=== PATIENT | male | born 1960 | race Caucasian/White ===

== ENCOUNTER → 2025-04-01 | Outpatient (CLI) | payer OTHER, SELFPAY ==
--- NOTE | 2025-04-01 07:45 | XR_ITS ---
Examination: Abdomen sonogram, complete Date and time of exam: April 01, 2025, 0721 hours INDICATIONS: Abdominal pain beginning 8 years ago. Technique: Multiple real-time grayscale transabdominal sonographic images of the abdomen have been obtained. Findings: Cholelithiasis, gallbladder wall 0.4 cm Common bile duct 0.4 cm Pancreatic head 2.9 cm Aorta not enlarged. Liver 16.4 cm fatty infiltration Normal hepatopetal portal venous flow Patent IVC Right kidney 11.6 cm renal cortex 1.3 cm Left kidney 10.7 cm renal cortex 1.2 cm Spleen 11.0 cm IMPRESSION: Cholelithiasis, thickening of the gallbladder wall, consider HIDA scan or MRCP follow-up to exclude cholecystitis
== END | disposition home or self-care (01) ==
LOC: CDIM 06:52
PROVIDERS: PCP Nurse Practitioner Family; Referring Provider Nurse Practitioner Family; Visit Provider Nurse Practitioner Family
DX: K80.20 Calculus of gallbladder without cholecystitis without obstruction (principal); K82.8 Other specified diseases of gallbladder
CPT/HCPCS: 76700

== ENCOUNTER 2025-04-23 07:14 | Observation (INO) | payer OTHER, SELFPAY ==
[2025-04-23] VITALS (17 sets, daily range): BP systolic 100–143; BP diastolic 64–96; PULSE 42–75; RESP 13–95; TEMP 36.1–37.1; O2SAT 94–98; BMI 31.4
--- NOTE | 2025-04-23 07:26 | EKG_ITS ---
[facility] Test Date: 2025-04-23 Pat Name: ZOË MADISON Department: Room: - Gender: Male Fund Accountant: : [id number] Requested By: ED Temporary Provider Order Number: [id number] Reading MD: ED Temporary Provider Measurements Intervals [place] Rate: 52 P: 66 ME: 174 QRS: -52 QRSD: 84 T: -15 QT: 370 QTc: 347 Interpretive Statements SINUS BRADYCARDIA PATTERN CONSISTENT WITH PULMONARY DISEASE LEFT ANTERIOR FASCICULAR BLOCK [QRS AXIS <= -45, QR IN I, RS IN II] SEPTAL MYOCARDIAL INFARCTION , PROBABLY OLD [40+ ms Q WAVE IN V1/V2] No previous ECG available for comparison /store/S0/[id number].pdf
--- NOTE | 2025-04-23 07:35 | XR_ITS ---
Examination: Abdomen sonogram, Limited Date and time of exam: April 23, 2025, 0745 hours INDICATIONS: Abdominal pain months, worse the last several weeks Technique: Real-time moralez scale transabdominal sonographic images of the upper abdomen obtained. Findings: Gallstones, gallbladder wall 0.2 cm Common bile duct 0.3 cm Pancreatic head 2.8 cm Liver 13.0 cm no liver lesions Normal hepatopetal portal venous flow Patent IVC IMPRESSION: Cholelithiasis, negative for cholecystitis
--- NOTE | 2025-04-23 07:35 | XR_ITS ---
Examination: CT abdomen and pelvis without contrast. Coronal 3-D reconstructions. Sagittal 2-D reconstructions. Date and time of exam: April 23, 2025, 0810 hours INDICATIONS: Generalized abdominal pain with nausea today CTDI: vol (mGy): 8.18 DLP: (mGycm): 505 Technique: Axial images of the abdomen have been obtained, 3 mm slice thickness Intravenous contrast material has not been administered. Low dose protocols were performed. One or more of the following dose reduction techniques were used; automated exposure control, adjustment of the mA and/or KV according to patient size, use of iterative reconstruction technique. Findings: No focal liver or splenic lesions Gallstones No pancreatic mass Fat-containing left adrenal nodule 24 mm Moderate renal scar formation, no hydronephrosis or ureteral calculi Aorta normal size No bowel obstruction Normal appendix No diverticulitis Normal seminal vesicles, no significant prostatomegaly Contracted urinary bladder IMPRESSION: Cholelithiasis, negative for cholecystitis 24 mm left adrenal adenoma Moderate renal scar formation Normal appendix No bowel obstruction or diverticulitis
[2025-04-23 08:24] LABS: Collection Type, Urine Clean Catch; Squamous Epithelial Cell,Urine 0 /hpf (0-5)
[2025-04-23 08:34] LABS: Basophils # (Auto) 0.0 Thou/mm3 (0.0-0.2); Basophils % (Auto) 1 % (0-2.5); Eosinophils # (Auto) 0.2 Thou/mm3 (0.0-0.5); Eosinophils % (Auto) 3 % (0-10); Hematocrit 46.9 % (41.0-53.0); Hemoglobin 15.2 g/dL (13.5-16.0); Immature Granulocytes Auto 0.03 Thou/mm3 (0.00-0.00); Lymphocytes # (Auto) 1.9 Thou/mm3 (1.0-4.8); Lymphocytes % (Auto) 29 % (10-50); Mean Corpuscular HGB Conc 32.4 g/dl (31.0-37.0); Mean Corpuscular Hemoglobin 28.4 pg (25.0-35.0); Mean Corpuscular Volume 88 fL (80-100); Monocytes # (Auto) 0.5 Thou/mm3 (0.0-0.8); Monocytes % (Auto) 8 % (0-12); Neutrophils # (Auto) 3.9 Thou/mm3 (1.8-7.7); Neutrophils % (Auto) 59 % (37-80); Nucleated Red Blood Cell # 0.00 Thou/mm3 (0.00-0.00); Nucleated Red Blood Cell % 0 /100 WBC (0); Platelet Count 268 Thou/mm3 (140-440); RDW Standard Deviation 43.1 fL (35.1-43.9); Red Blood Count 5.36 Miln/mm3 (4.50-5.90); White Blood Count 6.6 Thou/mm3 (3.8-10.6)
[2025-04-23 08:42] LABS: Bacteria,Urine Rare; Bilirubin,Urine Negative (Negative); Blood,Urine Negative (Negative); Clarity,Urine Clear (Clear/Hazy); Color,Urine Yellow (Lt Yel-Yel); Culture Indicated,Urine Not Indicated; Glucose, Urine Negative (Negative); Ketones,Urine 1+ (Negative); Leukocyte Esterase,Urine Negative (Negative); Nitrite,Urine Negative (Negative); PH,Urine 6.0 (5.0-7.0); Protein,Urine Negative (Neg - Trace); RBC,Urine 4 /hpf (0-3); Specific Gravity,Urine 1.018 (1.001-1.035); Urobilinogen,Urine Negative mg/dL (0.0-1.0); WBC,Urine 1 /hpf (0-5)
[2025-04-23 08:58] LABS: Alanine Aminotransferase 27 U/L (10-49); Albumin, Serum 4.5 gm/dL (3.4-4.8); Albumin/Globulin Ratio 1.4 (1.2-2.2); Alkaline Phosphatase 95 U/L (46-116); Anion Gap 9 (7-16); Aspartate Amino Transferase 23 U/L (0-34); BUN/Creatinine Ratio 9 Ratio (12-20); Bilirubin,Total 2.4 mg/dL (0.3-1.2); Blood Urea Nitrogen 9 mg/dL (9-23); Calcium 9.6 mg/dL (8.3-10.6); Calcium (Corrected) 9.6 mg/dL (8.5-10.1); Carbon Dioxide 26.9 mMol/L (20.0-31.0); Chloride 106 mMol/L (98-107); Creatinine (Component) 1.0 mg/dL (0.6-1.3); Estimated Creatinine Clearance 79.8 mL/min (>60); Globulin 3.2 gm/dL (2.3-3.5); Glucose 92 mg/dL (74-106); Lipase 38 U/L (12-53); Osmolality,Calculated 281 (275-295); Potassium 4.4 mMol/L (3.4-5.1); Sodium 142 mMol/L (136-145); Total Protein 7.7 gm/dL (5.7-8.2); eGFR > 60 See Note
[2025-04-23 09:21] LABS: Troponin I 0.082 ng/mL (0.0-0.045)
--- NOTE | 2025-04-23 09:43 | PD.EDABDPN ---
ED Abdominal Pain RME/HPI General Chief Complaint: Abdominal Pain Stated complaint: Abdominal pain Time seen by provider: 04/23/25 07:35 Arrival date/time: 04/23/25 07:14 64-year-old male presents to the Emergency Department for complaint of epigastric pain intermittently for the last month. Patient had an outpatient ultrasound which showed cholelithiasis patient was seen by Dr. Pearson and was referred to the ER for lab work and admission for cholecystectomy Related Data Allergies Allergy/AdvReac Type Severity Reaction Status Date / Time codeine Allergy Intermediate Vomiting Verified 04/23/25 07:18 Course Quality Measures none Orders Category Date Time Status COVID-19 Screening Questionnaire NOW Care 04/23/25 08:57 Active Decision to Admit X1 Care 04/23/25 08:57 Active EKG (ED ONLY) *Do not use* NOW Care 04/23/25 07:26 Completed Consult to Cardiology Stat Cons 04/23/25 09:50 Ordered Consult to General Surgery Stat Cons 04/23/25 08:[address] abdomen pelvis wo con Stat Exams 04/23/25 07:35 Completed EKG (ED Only) Stat Exams 04/23/25 07:26 Draft US gall bladder Stat Exams 04/23/25 07:35 Completed BNP [B-Type Natriuretic Peptide] Stat Lab 04/23/25 07:58 Completed CBC Stat Lab 04/23/25 07:58 Completed Comprehensive Metabolic Panel Stat Lab 04/23/25 07:58 Completed Lipase Stat Lab 04/23/25 07:58 Completed Mag [Magnesium] Stat Lab 04/23/25 07:58 Completed PT [Prothrombin Time with INR] Stat Lab 04/23/25 07:58 Completed PTT [Partial Thromboplastin Time] Stat Lab 04/23/25 07:58 Completed Troponin I Stat Lab 04/23/25 07:58 Completed UA, C/S IF [Urinalysis, C/S if Indicated] Stat Lab 04/23/25 07:44 Completed Vital Signs Vital signs: Vital Signs Temperature 98.1 F 04/23/25 07:30 Pulse Rate 55 L 04/23/25 07:30 Respiratory Rate 16 04/23/25 07:30 Blood Pressure 116/69 04/23/25 07:30 Pulse Oximetry (%) 95 04/23/25 07:30 Oxygen Delivery Method Room Air 04/23/25 07:30 O2 saturation 95% room air within normal limits PROCEDURES: EKG Interpretation #1: Date of EK04/23/25 Time of EK:56 Rate: 52 Interpretation: Interpreted by me EKG Impression: Normal sinus rhythm (Sinus bradycardia), No acute ST-T changes, No ectopy, No ischemic changes, Normal QRS and Normal axis Abdominal Pain MDM MDM Narrative MDM Narrative:: 64-year-old male presents to the Emergency Department for complaint of epigastric pain intermittently for the last month. Patient had an outpatient ultrasound which showed cholelithiasis patient was seen by Dr. Pearson and was referred to the ER for lab work and admission for cholecystectomy On exam patient does not appear ill or toxic no acute distress Lab work and imaging obtained as well as EKG Incidentally patient noted be bradycardic patient reports he is not on a beta-sole Patient takes lisinopril as well as cholesterol medication Patient troponin mildly elevated Consultation: I spoke with Dr. Pearson informed him of the results he requested cardiac clearance before surgery Patient to be admitted to hospitalist team. Consultation: Referral made to Dr. Bergeron cardiology At time of admission patient is in no distress Patient data External records reviewed:: [facility] previous records Clinical information provided by:: patient Social determinants that could affect healthcare access:: none Patient has the following chronic illnesses:: See history How is presenting disease/condition affected by chronic disease/condition?: caused by Evaluation data The following diagnostics were reviewed and interpreted by me:: lab results, radiology exam(s) and EKG tracing(s) Lab and/or radiology exams considered but not ordered:: Labs, radiology, EKG obtained Interpretation Summary: Reviewed by me Medications / Prescriptions Medications or Prescriptions considered but not ordered:: Given Medication administrations:: Given Consultations Consultation(s) initiated? (list below): Yes Consultation #1 (Physician, Specialty, Details): Dr Pearson Consultation #2 (Physician, Specialty, Details): Dr. Bergeron Diagnosis Differential diagnosis abdominal pain: abdominal pain, acute appendicitis, pancreatitis and other (Elevated troponin) Most likely diagnosis given after review of the tests above:: Gallstones, bradycardia, elevated troponin Admission Indicated Admission indicated?: not indicated Admission Request Was there a request for admission?: Yes Admission Attestation Admission request attestation: Discussed case with [] from Hospitalist service regarding admission. Discussed patients ED course, exam findings, labs, and radiology results. The Hospitalist [agrees,declines] to accept the patient for admission. Disposition Plan Disposition Plan: Admit Discharge Plan Plan Patient Disposition: Admit Acute Care w/in Hospital Discharge Disposition comment: Stable Prescriptions/Referrals Referrals: Woody([facility])Erika PA-C [Primary Care Provider] - In 1 week Problem List Clinical Impression: Biliary colic, Elevated troponin, Bradycardia Patient/Caregiver Discharge Instructions Education Materials: Preventing Surgical Site Infections Print Language: Lao Stand Alone Forms: Ariela Award Info., Patient Portal Info Letter PA/MANAGER [employer]IVERS[employer] Supervising Physician PA/MANAGER [employer]IVERSITY Supervising Physician: dr rosenthal
--- NOTE | 2025-04-23 09:46 | PC.SS ---
Patient Abram Green is a 64 Year old male admitted for Abdominal Pain. SS met with patient at bedside to discuss discharge plan and verify demographic information. Patient appeared to be alert to person place and situation. Patient reports he lives at home with his , William Green who he reports is his surrogate decision maker, [phone]. Patient does not utilize any source of DME to assist with ambulation. Patient is able to complete all ADL's independently. Choice of pharmacy is [facility] and PCP is Erika Mckay. At time of discharge patient will discharge back home. Patients will provide transportation. Discharge plan: Home Next of kin: , William Green PCP: Erika Mckay
[2025-04-23 10:13] LABS: Magnesium 2.0 mg/dL (1.6-2.6)
[2025-04-23 10:19] LABS: B-Type Natriuretic Peptide 41 pg/mL (0-100)
[2025-04-23 10:21] LABS: INR 1.0 (0.9-1.3); Partial Thromboplastin Time 29.4 Seconds (22.0-36.0); Prothrombin Time 10.9 Seconds (9.0-12.2)
--- NOTE | 2025-04-23 11:33 | ESCONSULT_ITS ---
<Statement entered by Antionette Bergeron MD - 04/28/25 12:48> I personally examined evaluated this patient who has GI symptoms and gallstones has mild bradycardia EKG unremarkable patient has no chest pain or shortness of breath evaluate patient with resident physician agree with treatment plan recommendation patient low cardiac risk for surgery proceed with surgery as scheduled for cholecystectomy HPI Data of Consult Consult date: 04/23/25 Requesting Physician: Jeri Mohamud DO Admitting Provider: Jeri Mohamud DO Attending Provider: Jeri Mohamud DO [facility] Consult Narrative Reason for consult: cardiac clearance History of present illness: Patient is 64 yr male with PMH of HTN and HLD presenting to ED due to worsening epigastric discomfort. Since past couple of years patient endorses burping with burning that worsens with coffee or soda. He has never taken OTC antacid medication but uses probiotics. Avoids eating spicy food and fast food. PCP is located [facility]. He was recently prescribed a course of azithromycin which temporarily relieved his symptoms. Patient has never undergone colonoscopy or EGD in the past. Discomfort is relieved with burping. Denies any diarrhea, chest pain, shortness of breath, no dizziness, no syncope, no LE swelling. Is typically active as his work involves lots of physical activity working in the [employer]. Does not smoke or drink etoh. Patient is aware of his bradycardia, says that this is baseline. CT A/P showed cholelithiasis, negative for cholecystitis, 24mm left adrenal adenoma. No diverticulitis. Cholelithiasis, negative for cholecystitis on Gallbladder u/s as well. EKG showed sinus bradycardia HR 52, QTc 347. CBC CMP largely unremarkable, Br elevated 2.4, LFTS wnl, Troponins 0.082. Cardiology consulted for clearance for cholecystectomy. cc:: cc: Jeri Mohamud DO Review of Systems Review of Systems Systems Reviewed: All systems reviewed, normal except as documented Exam Vital Signs Temp Pulse Resp BP Pulse Ox O2 Del Method 98.1 F 46 L 17 120/80 96 Room Air 04/23/25 07:30 04/23/25 09:15 04/23/25 09:15 04/23/25 09:15 04/23/25 09:15 04/23/25 09:15 Narrative Exam General: Alert and oriented x3. No acute distress, cooperative HEENT: NCAT, No JVD noted. Mucosa moist. Pupils are equal and reactive to light bilaterally Cardiovascular: Normal S1 and S2. Regular rate and rhythm. Respiratory: Lungs are clear to auscultation bilaterally. No wheezing or crackles heard. Abdomen: Soft, nontender, not distended, normal bowel sounds. Negative meyer sign. Skin: Warm to touch, dry, no rashes noted Musculoskeletal: No gross injuries. Able to move all 4 extremities. No pitting edema Neuro: Alert and oriented x3. No focal neuro deficits. Psych: Normal affect and mood Results Labs 04/23/25 07:58 04/23/25 07:58 Labs: Short CBC 04/23/25 Range/Units 07:58 WBC 6.6 (3.8-10.6) Thou/mm3 Hgb 15.2 (13.5-16.0) g/dL Hct 46.9 (41.0-53.0) % Plt Count 268 (140-440) Thou/mm3 BMP 04/23/25 07:58 Sodium 142 Potassium 4.4 Chloride 106 Carbon Dioxide 26.9 BUN 9 Creatinine 1.0 Glucose 92 Calcium 9.6 Cardiac Enzymes 04/23/25 Range/Units 07:58 Troponin I 0.082 H* (0.0-0.045) ng/mL Liver Function 04/23/25 Range/Units 07:58 Total Bilirubin 2.4 H (0.3-1.2) mg/dL AST 23 (0-34) U/L ALT 27 (10-49) U/L Alkaline Phosphatase 95 (46-116) U/L Albumin 4.5 (3.4-4.8) gm/dL Urine 04/23/25 Range/Units 07:44 Urine Color Yellow (Lt Yel-Yel) Urine Clarity Clear (Clear/Hazy) Urine pH 6.0 (5.0-7.0) Ur Specific [place] 1.018 (1.001-1.035) Urine Protein Negative (Neg - Trace) Urine Glucose (UA) Negative (Negative) Quality Measures Quality Measures none Medications Home Medications and Allergies Home Medications ?Medication ?Instructions ?Recorded ?Confirmed ?Type ezetimibe 10 mg tablet 10 mg PO DAILY 04/23/2509/12 History lisinopril 20 mg tablet 20 mg PO DAILY 04/23/2509/12 History Allergies Allergy/AdvReac Type Severity Reaction Status Date / Time codeine Allergy Intermediate Vomiting Verified 04/23/25 07:18 Visit Medications Discontinued Medications Pantoprazole Sodium (Pantoprazole Inj 40 Mg Vial) 40 mg IVP X1 ONE Stop: 04/23/25 11:28 Assessment & Plan Plan Patient is 64 yr male with PMH of HTN and HLD presenting to ED due to worsening epigastric discomfort. Since past couple of years patient endorses burping with burning that worsens with coffee or soda. Found to have gallstones on imaging. Cardiology consulted for clearance for cholecystectomy. #Elevated troponins #Asymptomatic Bradycardia EKG showed sinus bradycardia HR 52, QTc 347. Patient states that this is his baseline. He denies any SOB or dizziness. No chest pain. Trops minimally elevated at 0.082. Based on RCRI the patient scores 0. Indicating 0.5% risk of major cardiac event. Functional capacity estimated at >4 METs without symptoms. Patient is optimized from cardiac standpoint for procedure. No further testing is needed. -trend troponins -tele for HR monitoring -advise to discharge on pantoprazole 40 mg #Epigastric Pain #Biliary Colic #RUQ Pain #GERD #Cholelithiasis Primary care team to manage above conditions and ongoing care needs. The patient's management plan was discussed with my attending physician Dr. Bergeron. Purnima Ortiz, PGY-2
--- NOTE | 2025-04-23 13:29 | PC.NURSE ---
REPORT CALLED TO SHELLEY KHAN IN SURGERY. RN AWARE OF PATIENT'S HEART RATE BEING LOW IN 40S AND 50S AND ELEVATED TROPONIN LEVELS.
--- NOTE | 2025-04-23 13:55 | PD.SURCONS ---
HPI Consult details Consult date: 04/23/25 Reason for consultation narrative: Right upper quadrant abdominal pain with nausea History of present illness: 64-year-old male with history of hypertension and hypercholesterolemia presenting to the emergency department with abdominal pain. He has history of epigastric and right upper quadrant abdominal pain after eating. Over the past few days his pain has been getting progressively worse. He has epigastric and right upper quadrant abdominal pain rating to his chest and his back associated with nausea. Denies vomiting, fever, chills, jaundice or discoloration of urine or stool. CT scan and ultrasound revealed gallstones. Review of Systems Constitutional Constitutional: Denies chills and Denies fever(s) Cardiovascular Cardiovascular: Denies chest pain Respiratory Respiratory: Denies cough Gastrointestinal Gastrointestinal: Reports abdominal pain, Reports nausea and Denies vomiting Genitourinary Genitourinary: Denies difficulty urinating Musculoskeletal Musculoskeletal: Reports back pain Hematologic/Lymphatic Hematologic/Lymphatic: Denies easy bleeding and Denies easy bruising Past Medical History Surgical History OTHER SURGICAL HX: No surgeries in the past Social History SMOKING STATUS: Never smoker SUBSTANCE USE: does not use ALCOHOL: Current Meds Home Medications and Allergies Allergies Allergy/AdvReac Type Severity Reaction Status Date / Time codeine Allergy Intermediate Vomiting Verified 04/23/25 07:18 Exam Vital Signs Temp Pulse Resp BP Pulse Ox O2 Del Method 98.8 F 44 L 17 124/80 95 Room Air 04/23/25 12:35 04/23/25 12:35 04/23/25 12:35 04/23/25 12:35 04/23/25 12:35 04/23/25 12:35 Constitutional Constitutional: no acute distress Routine HEENT Exam Eye: Present PERRL (Anicteric sclera) Routine Abdominal Exam Comments: Abdomen is soft and nondistended. He has right upper quadrant tenderness to palpation with guarding, no rebound tenderness or peritonitis at this time Results Results: Laboratory Laboratory results: results reviewed Results: Imaging CT scan - abdomen: report reviewed and image reviewed CT scan - pelvis: report reviewed and image reviewed US - abdomen: report reviewed and image reviewed Assessment & Plan Additional Assessment Additional comments: Symptomatic cholelithiasis. Elevated troponins Plan Patient was evaluated by cardiology and cleared to proceed with cholecystectomy. Patient will be taken to the operating room for laparoscopic possible open cholecystectomy. Risks include but not limited to infection, bleeding, injury to bowel, liver, stomach, bile leak, retained stone, bile leak, abdominal sepsis and or abdominal abscess, need for further procedure and or operation discussed with the patient and his . Benefits alternatives explained to them, all their questions answered, they agreed and consented to proceed with the operation.
--- NOTE | 2025-04-23 14:38 | SUR.PHASEI ---
pt received from OR in recovery bay 5. pt obtunded, breathing unlabored on oxymask 6l, oral airway in place. v/s stabel. pt dressing to abd dermabond x4 cdi. report received from Dr. Rosas and Gayle ROSA.
--- NOTE | 2025-04-23 14:43 | ESHP_ITS ---
<Statement entered by Jose Alejandro Llamas MD - 04/23/25 18:19> Abram Green is a 64-year-old male with a past medical history of hypertension and hyperlipidemia who presents to the ED for abdominal pain. States that he had had significant abdominal pain that worsens with food and brought him to the ED. No associated nausea or vomiting, fever, chills, sweats but he does have some change in bowel habits including diarrhea and constipation. States that he has been having symptoms for the last few months but pain has been progressing and he was evaluated with outpatient imaging and noted to have gallstones. In the ED, vital signs were stable as he was afebrile and on room air and imaging showed cholelithiasis but no signs of cholecystitis on CT with a 24 mm left adrenal adenoma. Gallbladder ultrasound showed cholelithiasis and also negative for cholecystitis with normal CBD. EKG showed sinus bradycardia with a rate of 52 for which cardio was consulted and cleared patient for procedure. Patient underwent laparoscopic cholecystectomy without complications and will monitor overnight. He was started on clear liquid diet and will evaluate in the morning and follow-up on surgery recommendations. ----- Note reviewed and agree with care plan as documented. Please refer to the note below for further details. Plan discussed with attending physician Dr. Cade Llamas MD PGY-2 Internal Medicine Documentation for date of: 04/23/25 HPI History of Present Illness History of present illness: Mr. Abram Green is a 64M w/ a PMH of hyperlipidemia and hypertension here for RUQ and epigastric pain. He states that the pain has been a constant problem for the past 7 years, and has been progressively exacerbated by eating. What used to be intermittent pain with meals is now constant, irregardles of texture nor solid/liquid state. He rates the pain as 9/10 at peak, and 6/7 out of 10 at baseline, and describes it as sharp to RUQ/epigastric area without radiation. Denies fevers, chills, palpitations. Otherwise PMH and PSH is insignificant and noncontributory. Exam Vital Signs Temp Pulse Resp BP Pulse Ox O2 Del Method 98.8 F 44 L 17 124/80 95 Room Air 04/23/25 12:35 04/23/25 12:35 04/23/25 12:35 04/23/25 12:35 04/23/25 12:35 04/23/25 12:35 Narrative Exam General: alert and oriented to self/place/year, no acute distress, able to speak full sentences; GCS 15 AxOx4 HEENT: NC/AT, mucous membranes moist, bilateral sclera anicteric Cardiovascular: regular rate and rhythm, S1/S2 present, no murmurs appreciated Pulmonary: clear to auscultation bilaterally, no rales/rhonchi/wheezes Abdominal: soft, nontender, present bowel sounds; negative [place]'s sign, negative Rovsing's sign. Musculoskeletal: no peripheral edema Skin: Warm, well-perfused Constitutional Constitutional: no acute distress Results: Labs 04/23/25 07:58 04/23/25 07:58 Labs: Short CBC 04/23/25 Range/Units 07:58 WBC 6.6 (3.8-10.6) Thou/mm3 Hgb 15.2 (13.5-16.0) g/dL Hct 46.9 (41.0-53.0) % Plt Count 268 (140-440) Thou/mm3 BMP 04/23/25 07:58 Sodium 142 Potassium 4.4 Chloride 106 Carbon Dioxide 26.9 BUN 9 Creatinine 1.0 Glucose 92 Calcium 9.6 Cardiac Enzymes 04/23/25 Range/Units 07:58 Troponin I 0.082 H* (0.0-0.045) ng/mL Liver Function 04/23/25 Range/Units 07:58 Total Bilirubin 2.4 H (0.3-1.2) mg/dL AST 23 (0-34) U/L ALT 27 (10-49) U/L Alkaline Phosphatase 95 (46-116) U/L Albumin 4.5 (3.4-4.8) gm/dL Urine 04/23/25 Range/Units 07:44 Urine Color Yellow (Lt Yel-Yel) Urine Clarity Clear (Clear/Hazy) Urine pH 6.0 (5.0-7.0) Ur Specific [place] 1.018 (1.001-1.035) Urine Protein Negative (Neg - Trace) Urine Glucose (UA) Negative (Negative) Quality Measures Quality Measures none Medications Home Medications and Allergies Allergies Allergy/AdvReac Type Severity Reaction Status Date / Time codeine Allergy Intermediate Vomiting Verified 04/23/25 07:18 Visit Medications Fentanyl Citrate (Fentanyl Cit Inj 50 Mcg/Ml Amp 2ml) 25 mcg IVP Q5M PRN PRN Reason: PAIN SCALE 1-3 (mild Stop: 04/23/25 15:48 Hydromorphone HCl (Hydromorphone Inj 2 Mg/Ml Vial) 0.4 mg IVP Q5M PRN PRN Reason: PAIN SCALE 7-10 (Severe Stop: 04/23/25 15:49 Morphine Sulfate (Morphine Sulf Inj 4 Mg/Ml Vial) 3 mg IV Q5M PRN PRN Reason: PAIN SCALE 4-6 (Moderate Stop: 04/23/25 15:48 Discontinued Medications Ondansetron HCl (Ondansetron Inj 2 Mg/Ml Inj 2 Ml) 4 mg IVP X1 ONE Stop: 04/23/25 13:49 Pantoprazole Sodium (Pantoprazole Inj 40 Mg Vial) 40 mg IVP X1 ONE Stop: 04/23/25 11:28 Assessment & Plan Plan #Epigastric Pain #Biliary Colic #RUQ Pain #GERD #Cholelithiasis PMH of 7 year pain w/ meals; GERD vs Biliary Colic vs Cholecystitis No evidence of Cholecystitis on RUQ US: Cholelithiasis w/out evidence of cholecystic fat stranding/anterior wall thickening -S/p Cholecystitis w/ Dr. Peggy Pearson -Daily CMP BMP Mg Phos -Postoperative pain management multimodal with acetaminophen, norco and breakthrough morphine #Hyperbilirubinemia 04/23 TBili 2.4 AST ALT WNL S/p cholecystectomy w/ Dr. Peggy Pearson -Repeat Tbili 1205 AM #Asymptomatic Bradycardia #Elevated Troponins 04/23 0800 @ 0.082 EKG 04/23 = sinus bradycardia, QTC 347 R52 Cardiac clearance for surgery done by Dr. Bergeron -Telemetry monitoring -Follow up repeat troponin Hospital management: Disposition: postoperative evaluation, troponin check, Tbili check Fluids: NA, regular diet Diet: Regular diet as tolerated Lines: PIV DVT prophylaxis: Enoxaparin 40 CODE STATUS: full code/DNR Plan discussed with attending physician Dr. Jeri Armendariz MD, PGY1 Attending Provider Attestation/Addendum IJeri, DO, attest that I was physically present for the machado portions of the service and evaluated the patient with the resident and I reviewed and discussed the case with the resident and agree with the resident's findings and plans of care as documented above Patient is a 64 yo male with Pmhx of HTN with worsening epigastric pain since the summer who was seen by surgeon. Patient was found to be bradycardic and sent to ED. He was noted to have a detectable troponin of 0.082 and HR in the 40s. However, he denied any active chest pain or shortness of breath. Patient endorses postprandial pain and nausea, but no vomiting. He denies any fevers or chills. CT abd/pelvis was done in ED showing cholelithiasis, 24mm left adrenal adenoma, moderate renal scar formation, normal appendix. Gallbladder US is also positive for cholelithiasis. EKG shows evidence of sinus bradycardia, HR 52, no ST or T wave changes. Cardiology was consulted from ED for cardiac clearance for laprascopic cholecystectomy. Patient denies any personal history of cardiac disease. He states his mother has history of CAD with stent. 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 He denies any shortness of breath, lightheadedness or dyspnea on exertion. Will admit to telemetry to continue cardiac monitoring and for symptomatic cholelithiasis. Surgery consulted.
--- NOTE | 2025-04-23 15:55 | SUR.PHASEI ---
pt awake and alert, breathing unlabored on room air. v/s stable. pt dressing to abd dermabond x4 cdi. report called to Collette ROSA. pt will be transferred to room at this time.
[2025-04-23 17:23] LABS: Troponin I 0.073 ng/mL (0.0-0.045)
--- NOTE | 2025-04-23 18:40 | PC.NURSE ---
Pt having bigeminy. BP 118/70 pulse 51 resp-18 States that there is no chest pain, neck pain or arm pain. Just incisional discomfort. MD notified. States, watch for now.
[2025-04-24] VITALS: BP 96/57; PULSE 42; PULSE 43; RESP 17; TEMP 36.4; O2SAT 93
[2025-04-24 04:00] VITALS: BP 98/55; PULSE 44; PULSE 50; RESP 18; TEMP 36.2; O2SAT 98
[2025-04-24 05:48] LABS: Basophils # (Auto) 0.0 Thou/mm3 (0.0-0.2); Basophils % (Auto) 0 % (0-2.5); Eosinophils # (Auto) 0.0 Thou/mm3 (0.0-0.5); Eosinophils % (Auto) 0 % (0-10); Hematocrit 43.1 % (41.0-53.0); Hemoglobin 14.5 g/dL (13.5-16.0); Immature Granulocytes Auto 0.02 Thou/mm3 (0.00-0.00); Lymphocytes # (Auto) 1.4 Thou/mm3 (1.0-4.8); Lymphocytes % (Auto) 17 % (10-50); Mean Corpuscular HGB Conc 33.6 g/dl (31.0-37.0); Mean Corpuscular Hemoglobin 29.5 pg (25.0-35.0); Mean Corpuscular Volume 88 fL (80-100); Monocytes # (Auto) 0.4 Thou/mm3 (0.0-0.8); Monocytes % (Auto) 4 % (0-12); Neutrophils # (Auto) 6.3 Thou/mm3 (1.8-7.7); Neutrophils % (Auto) 78 % (37-80); Nucleated Red Blood Cell # 0.00 Thou/mm3 (0.00-0.00); Nucleated Red Blood Cell % 0 /100 WBC (0); Platelet Count 237 Thou/mm3 (140-440); RDW Standard Deviation 42.5 fL (35.1-43.9); Red Blood Count 4.91 Miln/mm3 (4.50-5.90); White Blood Count 8.1 Thou/mm3 (3.8-10.6)
[2025-04-24 05:50] VITALS: BMI 31.8
[2025-04-24 06:10] LABS: Alanine Aminotransferase 40 U/L (10-49); Albumin, Serum 4.3 gm/dL (3.4-4.8); Albumin/Globulin Ratio 1.4 (1.2-2.2); Alkaline Phosphatase 91 U/L (46-116); Anion Gap 12 (7-16); Aspartate Amino Transferase 44 U/L (0-34); BUN/Creatinine Ratio 12 Ratio (12-20); Bilirubin,Direct 0.9 mg/dL (0.0-0.3); Bilirubin,Total 2.5 mg/dL (0.3-1.2); Blood Urea Nitrogen 14 mg/dL (9-23); Calcium 9.4 mg/dL (8.3-10.6); Calcium (Corrected) 9.4 mg/dL (8.5-10.1); Carbon Dioxide 23.2 mMol/L (20.0-31.0); Chloride 104 mMol/L (98-107); Creatinine (Component) 1.2 mg/dL (0.6-1.3); Estimated Creatinine Clearance 66.9 mL/min (>60); Globulin 3.0 gm/dL (2.3-3.5); Glucose 114 mg/dL (74-106); Magnesium 2.1 mg/dL (1.6-2.6); Osmolality,Calculated 279 (275-295); Phosphorous 5.0 mg/dL (2.4-5.1); Potassium 4.5 mMol/L (3.4-5.1); Sodium 139 mMol/L (136-145); Total Protein 7.3 gm/dL (5.7-8.2); eGFR > 60 See Note
--- NOTE | 2025-04-24 07:15 | ESOP_ITS ---
Date of Procedure 04/23/25 Pre Op Diagnosis Symptomatic cholelithiasis Post Op Diagnosis Cholelithiasis with cholecystitis Procedure Laparoscopic cholecystectomy Findings Moderately distended gallbladder with multiple gallstones and chronic cholecystitis. Anterior surface of the liver was smooth without nodules or any lesions. Procedure Description Patient was brought into the operating room in supine position. After administration of general endotracheal anesthesia abdomen was prepped and draped in standard surgical manner. A Veress needle was inserted through the umbilicus and pneumoperitoneum was obtained up to 15 mmHg. The Veress needle was then removed, a 5 mm infraumbilical incision was made and the 5mm trocar was inserte d. Laparoscopic camera was placed. Under direct visualization a laparoscopic camera a 10 mm trocar was placed in subxiphoid and two 5 mm trocars placed in right upper quadrant. The anterior surface of the liver was smooth without nodules or any lesions. The gallbladder was identified and was noted to be moderately distended with a large gallstone and chronic cholecystitis. It was retracted cephalad and laterally. Dissection started near the infundibulum of gallbladder where cystic duct and gallbladder junction clearly identified. The cystic duct was circumferentially dissected off the peritoneum and surrounding inflammatory tissue. The critical view of safety was clearly demonstrated. Cystic duct was then divided between 2 endoclips proximally and one distally. The cystic artery was similarly dissected and divided. The gallbladder was then from the liver bed using electrocautery. The gallbladder was then placed inside an Endo Catch and removed from the abdomen utilizing subxiphoid trocar site. The area was copiously and thoroughly washed and irrigated, all the fluid was suctioned and the suction fluid returned clear. Hemostasis achieved using electrocautery. Endoclips noted be in place and intact without any bleeding or any leakage. Hemostasis was adequate and satisfactory. The subxiphoid trocar sites fascial defect was closed with 0 Vicryl using Endo C losure device. Instruments and trocars removed, pneumoperitoneum was evacuated and the incisions closed with 4-0 Monocryl in subcuticular fashion. Instrument needle and sponge counts were all reported to be correct X2. Patient tolerated the procedure well, was extubated, breathing spontaneously and without difficulty and was transferred to postanesthesia care in stable condition. Anesthesia GETA and local Pathology / specimen Other (Gallbladder and contents) Estimated Blood Loss 10 Condition Stable Disposition PACU Surgeon Peggy Pearson MD Surgical Staff Operation Date: 04/23/25 17:00 Case Staff Anesthesiologist: Cuong Rosas RN First Assistant: Gabriella Duval
[2025-04-24 08:00] VITALS: BP 121/67; PULSE 58; PULSE 62; RESP 19; TEMP 36.5; O2SAT 93
--- NOTE | 2025-04-24 09:14 | PC.SS ---
rounding note: Patient will dc home today. No d/c needs.
[2025-04-24 10:00] VITALS: PULSE 452
--- NOTE | 2025-04-24 10:43 | PC.NURSE ---
Pt having multifocal PVC's. Bigeminey. Denies any symptoms. Standing in room. MD notified. States that cardiology is on board and not concerned at this time.
[2025-04-24 12:00] VITALS: BP 118/74; PULSE 45; PULSE 55; RESP 20; TEMP 36.2; O2SAT 95
--- NOTE | 2025-04-24 13:23 | PD.SURPROG ---
Documentation for date of: 04/24/25 Subjective Subjective Narrative: Patient is seen and examined. His pain is improving. Exam Vital Signs Temp Pulse Resp BP Pulse Ox O2 Del Method O2 Flow Rate 97.1 F 55 L 20 118/74 95 Room Air 6 04/24/25 12:00 04/24/25 12:00 04/24/25 12:00 04/24/25 12:00 04/24/25 12:00 04/24/25 12:00 04/23/25 20:00 Constitutional Constitutional: no acute distress Routine Abdominal Exam Comments: Abdomen is soft and nondistended. He has minimal epigastric incisional tenderness. Incisions are clean, dry and intact Assessment & Plan Assessment Additional comments: Postop day #1 status post laparoscopic cholecystectomy Plan May discharge home PROCEDURES: Procedures Laparoscopic cholecystectomy
--- NOTE | 2025-04-24 14:04 | ESDS_ITS ---
<Statement entered by Jeri Mohamud DO - 04/25/25 07:13> I, Jeri Mohamud DO, attest that I was physically present for the machado portions of the service and evaluated the patient with the resident and I reviewed and discussed the case with the resident and agree with the resident's findings and plans of care as documented above <Statement entered by Jose Alejandro Llamas MD - 04/24/25 14:42> Note reviewed and agree with care plan as documented. Please refer to the note below for further details. Plan discussed with attending physician Dr. Cade Llamas MD PGY-2 Internal Medicine Planned Discharge Date 04/24/25 DS: Providers Provider Date of admission: 04/23/25 11:03 [facility] Admitting Provider: Jeri Mohamud DO Attending Provider on Admission: Jeri Mohamud DO Consults: 04/23/25 08:57 Consult to General Surgery Stat Comment: Consulting Provider: Peggy Pearson 04/23/25 09:50 Consult to Cardiology Stat Comment: Consulting Provider: Antionette Bergeron Attending Provider on DC: Jeri Mohamud DO Discharging Provider: Jeri Mohamud DO Anticipated date of discharge: 05/27/25 DS: Diagnosis Problem List Completed Was Problem List Reviewed/Reconciled?: Yes Hospital Course Hospital Course Hospital course: Summary Mr. Abram Green is a 64M w/ a PMH of GERD, hyperlipidemia and hypertension who presents to [facility] on 04/23/25 with chief complain of RUQ and epigastric pain. Patient had an outpatient ultrasound which showed cholelithiasis patient was seen by Dr. Pearson and was referred to the ER for lab work and admission for cholecystectomy. CT A/P showed cholelithiasis, negative for cholecystitis, 24mm left adrenal adenoma. No diverticulitis. Cholelithiasis, negative for cholecystitis on Gallbladder u/s as well. LFTS were unremarkable. Pain and nausea was controlled with tylenol, norco and zofran. Laparoscopic cho lecystectomy was done on 04/24 which showed Cholelithiasis with chronic cholecystitis. Postprocedure patient is able to pass gas, ambulate and denies abdominal pain, nausea, vomiting. Physical examination there is minimal discomfort around the incision area. Patient is able to tolerate solid food. Vitals are stable. Further plan to discharge the patient home with pain regimen since he is hemodynamically stable to be discharged home to self care with the following instructions. Discharge recommendation: -Take pantoprazole 40mg at least 30min before meals, as need - Being prescribed norco and ibruprofen for pain management - Continue rest of medications as previously prescribed - Follow up with PCP in 1 week, If you don't have a PCP, you can make an appointment at the [facility]: - Return to the ED or call EMS is symptoms return and/or worsen Hospital Diagnoses: #Cholelithiasis with chronic cholecystitis s/p laparoscopic cholecystectomy #Biliary colic #Sinus Bradycardia, asymptomatic #24mm left adrenal adenoma Patient seen under supervision of attending physician Dr. De La Cruz and senior resident Dr. Nikhil Llamas PGY-2 Fay Luna MD PGY-1, Internal Medicine Please note: this document was transcribed using voice recognition technology; minor inaccuracies may be present. Status at Discharge Functional status at discharge: independent ambulation Time Spent with Patient Time attestation: Total time spent providing and/or coordinating discharge services: Time spent: Greater than 30 minutes Exam Vital Signs Temp Pulse Resp BP Pulse Ox O2 Del Method O2 Flow Rate 97.1 F 55 L 20 118/74 95 Room Air 6 04/24/25 12:00 04/24/25 12:00 04/24/25 12:00 04/24/25 12:00 04/24/25 12:00 04/24/25 12:00 04/23/25 20:00 Narrative Exam General: Alert, no acute distress.Conversational and non-toxic appearing. Skin: Warm, dry, intact. No rash or ecchymoses. Head: Normocephalic, atraumatic. Eye: Normal conjunctiva, PERRL. Throat: Oral mucosa moist. No obvious lesions in oropharynx. Cardiovascular: Regular rate and rhythm, no murmur, +S1/S2. Respiratory: Lungs are clear to auscultation, respirations unlabored, no crackles, no wheezing. Gastrointestinal: Soft, minimal epigastric incisional tenderness, non-distended. No guarding or rebound tenderness. Extremities: No edema, no cyanosis, no clubbing. Neuro: Alert and oriented x3.No focal deficits observed. Conversant, moving all extremities. No overt cerebellar signs/incoordination. Psychiatric: Cooperative, appropriate affect Discharge Plan Plan Patient Disposition: HOME (Self Care) Patient condition on transfer: Stable Health Concerns: -Take pantoprazole 40mg at least 30min before meals, as need - Being prescribed norco and ibruprofen for pain management - Continue rest of medications as previously prescribed - Follow up with PCP in 1 week, If you don't have a PCP, you can make an appointment at the [facility]: - Return to the ED or call EMS is symptoms return and/or worsen Prescriptions/Referrals Prescriptions/Med Rec: New hydrocodone-acetaminophen 5-325 mg Tablet 1 tab PO Q6HR MDD 4 PRN (Reason: pain (scale score 7-10)) Qty: 10 0RF docusate sodium [Colace] 100 mg capsule 100 mg PO BID Qty: 20 0RF ibuprofen 600 mg tablet 600 mg PO Q8H PRN (Reason: pain (scale score 4-6)) Qty: 15 0RF pantoprazole 40 mg tablet,delayed release (DR/EC) 40 mg PO QDAY Qty: 30 0RF Continued lisinopril 20 mg tablet 20 mg PO DAILY Patient Comments: TAKE 1 TABLET BY MOUTH DAILY ezetimibe 10 mg tablet 10 mg PO DAILY Patient Comments: TAKE 1 TABLET BY MOUTH EVERY DAY Referrals: Jean Pierre)Erika PA-C [Primary Care Provider] Patient/Caregiver Discharge Instructions Discharge Activity: activity as tolerated Other Discharge Diet Instructions: low fat diet Education Materials: Preventing Surgical Site Infections, Understanding Bradycardia Print Language: Lao Activity Restrictions/Additional Instructions: May shower. Avoid lifting, straining, pulling or pushing for 4 weeks. May take over the counter laxatives if no bowel movement in 2 days. Follow up with Dr. Pearson in 2 weeks, call [phone] for an appointment. Continue low-fat diet for 1 week then advance diet as tolerated. Stand Alone Forms: Ariela Award Info., Patient Portal Info Letter, Work/Release Restrictions Discharge Order Discharge Orders: Discharge (Routine); Ordered 04/24/25 Ordered By: Fay Luna Quality Discharge Quality Measures VTE prophylaxis
[2025-04-24 15:40] VITALS: BP 120/71; PULSE 51; RESP 23; TEMP 36.4; O2SAT 97
== END 2025-04-24 15:20 | disposition home or self-care (01) ==
LOC: SERX 09:50 → SERHOLD 12:15 → S2NX 04-24 06:27 → SERHOLD 04-24 06:34 → S2NX 04-24 06:35
PROVIDERS: Nurse Practitioner Primary Care; Student in an Organized Health Care Education/Training Program; Surgery; Admitting Provider Internal Medicine; Emergency Provider Family Medicine; PCP Nurse Practitioner Family; Visit Provider Internal Medicine
PROC: 0FT44ZZ Resection of Gallbladder, Percutaneous Endoscopic Approach (ICD-10-PCS; CPT 47562; principal; 2025-04-23 17:00)
DX: K80.10 Calculus of gallbladder with chronic cholecystitis without obstruction (principal); I10 Essential (primary) hypertension; E78.5 Hyperlipidemia, unspecified; R00.1 Bradycardia, unspecified; D35.02 Benign neoplasm of left adrenal gland; Z82.49 Family history of ischemic heart disease and other diseases of the circulatory system; K21.9 Gastro-esophageal reflux disease without esophagitis
CPT/HCPCS: 47562; 36415; 74176; 76705; 80053; 81001; 82248; 83690; 83735; 83880; 84100; 84484; 85025; 85610; 85730; 93005; 94664; 99283; A4217; A4649; G0378; J0131; J0694; J1100; J1885; J2250; J2405; J2704; J3010; J3490